=== PATIENT | male | born 1955 | race Caucasian/White ===

== ENCOUNTER 2016-05-15 10:00 | Outpatient (RCR) | payer MEDICARE, OTHER ==
[~2016-05-15 10:00] MED LIST: ACETAMINOPHEN-1 EAC1 ORAL; ACETAMINOPHEN650 M2 ORAL; AMBIEN5 MG ORAL; ATIVAN0.5 MG ORAL; AUGMENTIN 875-1 EAC1 ORAL; BACLOFEN10 MG ORAL; BENAZEPRIL HCL20 MG ORAL; CATAPRES0.1 MG ORAL; CELEXA20 MG ORAL; COGENTIN1 MG GT; COGENTIN1 MG ORAL; CVS EAR CARE F GT; CYCLOBENZAPRINE10 MG ORAL; CYMBALTA30 MG ORAL; DEPAKENE250 MG GT; DEPAKENE250 MG ORAL; DEPAKOTE500 MG PO; DESYREL50 MG GT; DSS250 MG ORAL; DSS250 MG PO; FLEET ENEMA133 ML RC; GABAPENTIN300 MG ORAL; GABAPENTIN600 MG ORAL; IBUPROFEN600 MG ORAL; KLONOPIN0.5 MG GT; KLONOPIN2 MG GT; LANTUS5 UNITS SUBQ; LEVEMIR100 UNIT/1 SUBQ; LIDODERM700 M1 TOPIC; LIPITOR20 MG ORAL; LIPITOR20 MG PO; LISINOPRIL10 MG GT; LISINOPRIL10 MG ORAL; M.V.I. ADULT10 ML GT; MAPAP500 M2 PO; MELATONIN1 M1 SL; METAMUCIL PACK1 EAC1 PO; METAMUCIL1 EAC1 GT; METFORMIN HCL500 M1 ORAL; MILK OF MA2400 MG/10 ORAL; MILK OF MA400 MG/51 ORAL; MILK OF MA400 MG/51 PO; MIRALAX17 G2 ORAL; MIRALAX17 G2 PO; MOM30 ML GT; NEOSPORIN ANT14.2 GM TP; NEURONTIN800 MG GT; NOVOLOG100 UNIT/3 SUBQ; NOVOLOG100 UNIT/4 SQ; PROSCAR5 MG ORAL; PROTONIX40 M2 GT; PROTONIX40 M2 PO; REGLAN10 MG GT; RISPERDAL1 MG/1 ML GT; RISPERDAL1 MG/1 ML PO; RISPERIDONE ODT2 MG PO; SERTRALINE HCL25 MG ORAL; STARLIX120 MG ORAL; SYNTHROID75 MCG GT; SYNTHROID75 MCG ORAL; SYNTHROID75 MCG PO; TAMSULOSIN HCL0.4 MG ORAL; TRAMADOL HCL50 MG ORAL; TRAZODONE HCL100 MG ORAL; TRAZODONE HCL150 MG ORAL; VALPROIC A500 MG/10 GT; VIT. C GT; VITAMIN B-1100 MG GT; VITAMIN B-121000 MCG GT; VITAMIN C500 MG/11 GT; [UNRECOGNIZED DRUG - OTHER]; vit b12 GT
--- NOTE | 2016-05-22 09:19 | IOP Physician Progress Note ---
IOP Physician Progress Note Problem: other (specify) Description of Symptoms: considered to have bipolar disorder. He acknowledges mood swings, but says he doesn't have any symptoms now. He says he presenty feels good, is sleeping a little better. Diagnosis [place] I: Bipolar disorder [place]: II deferred [place]: III diabetes, arthritis, diabetic neuropathy [place]: IV easily stressed [place]: V 31-40 Progress Since Last Eval: The patient seems to be somewhat more stable, but perhaps it is only that the stressors are less. Current Med Management: There are no plans to change. Home Meds: Reported Medications Melatonin (MELATONIN) 1 Mg Tab.subl, 5 MG SL BEDTIME Y for Insomnia, TAB 01/05/16 [elan-lanta] No Conflict Check 12/15/15 Acetaminophen (MAPAP) 500 Mg Capsule, 500 MG PO Q6H, CAP 12/15/15 Magnesium Hydroxide* (MILK OF MAGNESIA*) 400 Mg/5 Ml Oral.susp, 30 ML ORAL DAILY , ML 12/15/15 Gabapentin* (GABAPENTIN*) 600 Mg Tablet, 300 MG ORAL bid, TAB 01/27/15 Duloxetine Hcl* (CYMBALTA*) 30 Mg Capsule.dr, 60 MG ORAL hs, CAP 01/27/15 Risperidone (RISPERIDONE ODT) 2 Mg Tab.rapdis, 1 MG PO bid, TAB 01/04/15 Baclofen* (BACLOFEN*) 10 Mg Tablet, 10 MG ORAL THREE TIMES A DAY, TAB 01/04/15 Metformin Hcl* (METFORMIN HCL*) 500 Mg Tablet, 850 MG ORAL three times per day, TAB 10/20/14 Divalproex Sodium (Depakote) 500 Mg Tabec, 500 MG PO TID, TAB 10/20/14 Nateglinide (Starlix) 120 Mg Tab, 120 MG ORAL THREE TIMES A DAY, TAB 10/20/14 Atorvastatin Calcium* (LIPITOR*) 20 Mg Tablet, 20 MG ORAL BEDTIME, TAB 06/09/13 Benazepril Hcl* (BENAZEPRIL HCL*) 20 Mg Tablet, 20 MG ORAL DAILY, TAB 12/18/12 Levothyroxine Sodium* (SYNTHROID*) 75 Mcg Tablet, 25 MCG PO ACBREAKFAST, #10 TAB Take 1 tablet by mouth every day. 05/28/12 Appearance: well groomed Affect: labile Mood: irritable Thought Process: no abnormalities Thought Content: no abnormalities Suicidal/Homicidal Ideations: not present Risk Assessment: low risk at this time Cognition: no abnormalities Accomplishments before DC: The patient needs to continue to work on mood stabilization. Comments There are no acute physical problems. ALYSSA BLOOM May 22, 2016 09:19
--- NOTE | 2016-05-26 12:51 | IOP Daily Group Progress Note ---
IOP Daily Group Progress Note Treatment Plan/Target Problem: Date: May 26, 2016 Problem: depression Program: reflections Group Reflections - Sunday: group 2 (10:35am-11:20am) Therapy Focus/Approach of Group: skills Goal(s) of Group: assertiveness skills, coping tools for symptoms, impact of current issues on mood Observations: concrete thinking, constricted affect, depressed mood, low energy , monopolizing, participated, self disclosing, responded to prompts Staff Intervention: encouraged patient participation, facilitated discussion, provided psycho-education Response/Progress Noted: TREATMENT RESISTANCE ICEBERG Pt participated in a Cognitive Behavioral Therapy group discussion in response to the questions, When people in group say, I dont know, or I dont care, or monopolize by taking a lot of group time to tell all the details, imagine what might that person be feeling or experiencing? An illustration was drawn of an iceberg above the water with the surface feelings and behaviors, and the possible feelings that might be present under the water such as sadness, anger , low self-esteem, hurt, feeling like no one cares about you, emotionally raw, in emotional pain, or shame about feeling anxious or depressed. Pt stated, I received a lot of anger from my Mother. KARELY NIETO May 26, 2016 12:51
--- NOTE | 2016-05-29 09:27 | IOP Physician Progress Note ---
IOP Physician Progress Note Problem: impaired thoughts, other (specify) Description of Symptoms: Unstable, inconsistent, in his voice timbre, his mood, what he talks about. At times is almost circumstantial, at other times gets loud, silly and the like. He talks about trouble with a friend whom he visited. Diagnosis [place] I: Bipolar disorder [place]: II deferred [place]: III diabetes, arthritis, diabetic neuropathy [place]: IV easily stressed [place]: V 31-40 Progress Since Last Eval: The patient remains very fragile emotionally. Current Med Management: There aare no plans to change at this time, but the patient is having his depakote checked next week--it has not been done for 6 months!! Home Meds: Reported Medications Melatonin (MELATONIN) 1 Mg Tab.subl, 5 MG SL BEDTIME Y for Insomnia, TAB 01/05/16 [elan-lanta] No Conflict Check 12/15/15 Acetaminophen (MAPAP) 500 Mg Capsule, 500 MG PO Q6H, CAP 12/15/15 Magnesium Hydroxide* (MILK OF MAGNESIA*) 400 Mg/5 Ml Oral.susp, 30 ML ORAL DAILY , ML 12/15/15 Gabapentin* (GABAPENTIN*) 600 Mg Tablet, 300 MG ORAL bid, TAB 01/27/15 Duloxetine Hcl* (CYMBALTA*) 30 Mg Capsule.dr, 60 MG ORAL hs, CAP 01/27/15 Risperidone (RISPERIDONE ODT) 2 Mg Tab.rapdis, 1 MG PO bid, TAB 01/04/15 Baclofen* (BACLOFEN*) 10 Mg Tablet, 10 MG ORAL THREE TIMES A DAY, TAB 01/04/15 Metformin Hcl* (METFORMIN HCL*) 500 Mg Tablet, 850 MG ORAL three times per day, TAB 10/20/14 Divalproex Sodium (Depakote) 500 Mg Tabec, 500 MG PO TID, TAB 10/20/14 Nateglinide (Starlix) 120 Mg Tab, 120 MG ORAL THREE TIMES A DAY, TAB 10/20/14 Atorvastatin Calcium* (LIPITOR*) 20 Mg Tablet, 20 MG ORAL BEDTIME, TAB 06/09/13 Benazepril Hcl* (BENAZEPRIL HCL*) 20 Mg Tablet, 20 MG ORAL DAILY, TAB 12/18/12 Levothyroxine Sodium* (SYNTHROID*) 75 Mcg Tablet, 25 MCG PO ACBREAKFAST, #10 TAB Take 1 tablet by mouth every day. 05/28/12 Appearance: well groomed Affect: labile Mood: anxious Thought Process: no abnormalities, illogical Thought Content: no abnormalities Suicidal/Homicidal Ideations: not present Risk Assessment: low risk at this time Cognition: no abnormalities Accomplishments before DC: The patient still lacks mood stabiilty, though he seems to calm down with some "shaping" by others. Comments There are no physical problems. ALYSSA BLOOM May 29, 2016 09:27
== END 2016-05-30 | disposition home or self-care (01) ==
LOC: PTY 10:00
DX: M25.60 Stiffness of unspecified joint, not elsewhere classified (principal); R53.1 Weakness; M54.30 Sciatica, unspecified side; M25.551 Pain in right hip
CPT/HCPCS: 97110; 97162; G8978; G8979

== ENCOUNTER 2016-06-05 13:42 | Outpatient (RCR) | payer MEDICARE, OTHER ==
--- NOTE | 2016-06-12 09:37 | IOP Physician Progress Note ---
IOP Physician Progress Note Description of Symptoms: Continues to report sleep difficulties, but it is almost like he uses that to have something to talk about with me. Diagnosis [place] I: Schizoaffective disorder, bipolar type. [place]: II deferred [place]: III diabetes, in wheelchair due to neuropathy, arthritis [place]: IV senstivie to stressors in his environment [place]: V 31-40 Progress Since Last Eval: The patient may have somewhat better affective control. Current Med Management: The patient reports drooling, and wants cogentin Home Meds: Reported Medications Melatonin (MELATONIN) 1 Mg Tab.subl, 5 MG SL BEDTIME Y for Insomnia, TAB 01/05/16 [elan-lanta] No Conflict Check 12/15/15 Acetaminophen (MAPAP) 500 Mg Capsule, 500 MG PO Q6H, CAP 12/15/15 Magnesium Hydroxide* (MILK OF MAGNESIA*) 400 Mg/5 Ml Oral.susp, 30 ML ORAL DAILY , ML 12/15/15 Gabapentin* (GABAPENTIN*) 600 Mg Tablet, 300 MG ORAL bid, TAB 01/27/15 Duloxetine Hcl* (CYMBALTA*) 30 Mg Capsule.dr, 60 MG ORAL hs, CAP 01/27/15 Risperidone (RISPERIDONE ODT) 2 Mg Tab.rapdis, 1 MG PO bid, TAB 01/04/15 Baclofen* (BACLOFEN*) 10 Mg Tablet, 10 MG ORAL THREE TIMES A DAY, TAB 01/04/15 Metformin Hcl* (METFORMIN HCL*) 500 Mg Tablet, 850 MG ORAL three times per day, TAB 10/20/14 Divalproex Sodium (Depakote) 500 Mg Tabec, 500 MG PO TID, TAB 10/20/14 Nateglinide (Starlix) 120 Mg Tab, 120 MG ORAL THREE TIMES A DAY, TAB 10/20/14 Atorvastatin Calcium* (LIPITOR*) 20 Mg Tablet, 20 MG ORAL BEDTIME, TAB 06/09/13 Benazepril Hcl* (BENAZEPRIL HCL*) 20 Mg Tablet, 20 MG ORAL DAILY, TAB 12/18/12 Levothyroxine Sodium* (SYNTHROID*) 75 Mcg Tablet, 25 MCG PO ACBREAKFAST, #10 TAB Take 1 tablet by mouth every day. 05/28/12 Appearance: well groomed Affect: labile Mood: anxious Thought Process: no abnormalities Thought Content: no abnormalities Suicidal/Homicidal Ideations: not present Risk Assessment: low risk at this time Cognition: no abnormalities Accomplishments before DC: The paatient needs to work on affective control. Comments Only drooling is the problem the patient identifies. ALYSSA BLOOM Jun 12, 2016 09:37
--- NOTE | 2016-06-19 09:43 | IOP Physician Progress Note ---
IOP Physician Progress Note Problem: depression Description of Symptoms: The patient complains of depression, and says he is angry and having problems with temper. Staff here thinks the patient is primariily angry that he is being encouraged to get outof his wheelchair and do some things. Diagnosis [place] I: Schizoaffective disorder, bipolar type. [place]: II deferred [place]: III diabetes, in wheelchair due to neuropathy, arthritis [place]: IV senstivie to stressors in his environment [place]: V 31- Progress Since Last Eval: The patient is more discouraged, says he is having problems with other people where he lives. Current Med Management: We await the depakote level--the patient tells me the appointment is July 10 , not the . Home Meds: Reported Medications Melatonin (MELATONIN) 1 Mg Tab.subl, 5 MG SL BEDTIME Y for Insomnia, TAB 01/05/16 [elan-lanta] No Conflict Check 12/15/15 Acetaminophen (MAPAP) 500 Mg Capsule, 500 MG PO Q6H, CAP 12/15/15 Magnesium Hydroxide* (MILK OF MAGNESIA*) 400 Mg/5 Ml Oral.susp, 30 ML ORAL DAILY , ML 12/15/15 Gabapentin* (GABAPENTIN*) 600 Mg Tablet, 300 MG ORAL bid, TAB 01/27/15 Duloxetine Hcl* (CYMBALTA*) 30 Mg Capsule.dr, 60 MG ORAL hs, CAP 01/27/15 Risperidone (RISPERIDONE ODT) 2 Mg Tab.rapdis, 1 MG PO bid, TAB 01/04/15 Baclofen* (BACLOFEN*) 10 Mg Tablet, 10 MG ORAL THREE TIMES A DAY, TAB 01/04/15 Metformin Hcl* (METFORMIN HCL*) 500 Mg Tablet, 850 MG ORAL three times per day, TAB 10/20/14 Divalproex Sodium (Depakote) 500 Mg Tabec, 500 MG PO TID, TAB 10/20/14 Nateglinide (Starlix) 120 Mg Tab, 120 MG ORAL THREE TIMES A DAY, TAB 10/20/14 Atorvastatin Calcium* (LIPITOR*) 20 Mg Tablet, 20 MG ORAL BEDTIME, TAB 06/09/13 Benazepril Hcl* (BENAZEPRIL HCL*) 20 Mg Tablet, 20 MG ORAL DAILY, TAB 12/18/12 Levothyroxine Sodium* (SYNTHROID*) 75 Mcg Tablet, 25 MCG PO ACBREAKFAST, #10 TAB Take 1 tablet by mouth every day. 05/28/12 Appearance: well groomed Affect: constricted Mood: angry Thought Process: no abnormalities Thought Content: no abnormalities Suicidal/Homicidal Ideations: not present Risk Assessment: low risk at this time Cognition: no abnormalities Accomplishments before DC: The patient needs to get better understanding of his affective ability. Comments There are no acute physical problems. ALYSSA BLOOM Jun 19, 2016 09:43
--- NOTE | 2016-06-26 09:22 | IOP Physician Progress Note ---
IOP Physician Progress Note Problem: other (specify) Description of Symptoms: The patient sees the world as crushing down on him. He thinks he is sicker than anyone else. But he has little observing ego about ity. THus for example , he erupted vs his continuous mining operator yesterday, because she did not shave and shower him. But he also acknowledges that he can shave himself. He is vague about what it is that would help. Diagnosis [place] I: Schizoaffective disorder, bipolar type. [place]: II deferred [place]: III diabetes, in wheelchair due to neuropathy, arthritis [place]: IV senstivie to stressors in his environment [place]: V - Progress Since Last Eval: The patient continues very labile. Current Med Management: This needs to be reviewed. Home Meds: Reported Medications Melatonin (MELATONIN) 1 Mg Tab.subl, 5 MG SL BEDTIME Y for Insomnia, TAB 01/05/16 [elan-lanta] No Conflict Check 12/15/15 Acetaminophen (MAPAP) 500 Mg Capsule, 500 MG PO Q6H, CAP 12/15/15 Magnesium Hydroxide* (MILK OF MAGNESIA*) 400 Mg/5 Ml Oral.susp, 30 ML ORAL DAILY , ML 12/15/15 Gabapentin* (GABAPENTIN*) 600 Mg Tablet, 300 MG ORAL bid, TAB 01/27/15 Duloxetine Hcl* (CYMBALTA*) 30 Mg Capsule.dr, 60 MG ORAL hs, CAP 01/27/15 Risperidone (RISPERIDONE ODT) 2 Mg Tab.rapdis, 1 MG PO bid, TAB 01/04/15 Baclofen* (BACLOFEN*) 10 Mg Tablet, 10 MG ORAL THREE TIMES A DAY, TAB 01/04/15 Metformin Hcl* (METFORMIN HCL*) 500 Mg Tablet, 850 MG ORAL three times per day, TAB 10/20/14 Divalproex Sodium (Depakote) 500 Mg Tabec, 500 MG PO TID, TAB 10/20/14 Nateglinide (Starlix) 120 Mg Tab, 120 MG ORAL THREE TIMES A DAY, TAB 10/20/14 Atorvastatin Calcium* (LIPITOR*) 20 Mg Tablet, 20 MG ORAL BEDTIME, TAB 06/09/13 Benazepril Hcl* (BENAZEPRIL HCL*) 20 Mg Tablet, 20 MG ORAL DAILY, TAB 12/18/12 Levothyroxine Sodium* (SYNTHROID*) 75 Mcg Tablet, 25 MCG PO ACBREAKFAST, #10 TAB Take 1 tablet by mouth every day. 05/28/12 Appearance: well groomed Affect: labile Mood: anxious Thought Process: illogical Thought Content: no abnormalities Suicidal/Homicidal Ideations: not present Risk Assessment: low risk at this time Cognition: no abnormalities Accomplishments before DC: The patient needs to work for affective stability. Comments There are no acute physical problems. ALYSSA BLOOM Jun 26, 2016 09:22
== END 2016-06-30 | disposition home or self-care (01) ==
LOC: PTY 13:42
DX: R53.1 Weakness (principal); M25.60 Stiffness of unspecified joint, not elsewhere classified

== ENCOUNTER 2016-07-07 13:16 | Outpatient (RCR) | payer MEDICARE, OTHER ==
--- NOTE | 2016-07-12 09:31 | IOP Physician Progress Note ---
IOP Physician Progress Note Problem: other (specify) Description of Symptoms: Patient is fundamentally bipolar with affective lability, inappropriate behavior , laughter and the like. Diagnosis [place] I: Bipolar disorder with psychotic features [place]: II deferred [place]: III diabetes with peripheral neuropathy, sciatica, arthritis [place]: IV sensitive to stressors [place]: V 31-40 Progress Since Last Eval: The patient is intermittently, but not consistently, in control. Current Med Management: This is under review. The patient complains of drooling and says that he has responded to cogentin 1 mg po daily before. I will prescribe this. Home Meds: Reported Medications Melatonin (MELATONIN) 1 Mg Tab.subl, 5 MG SL BEDTIME Y for Insomnia, TAB 01/05/16 [elan-lanta] No Conflict Check 12/15/15 Acetaminophen (MAPAP) 500 Mg Capsule, 500 MG PO Q6H, CAP 12/15/15 Magnesium Hydroxide* (MILK OF MAGNESIA*) 400 Mg/5 Ml Oral.susp, 30 ML ORAL DAILY , ML 12/15/15 Gabapentin* (GABAPENTIN*) 600 Mg Tablet, 300 MG ORAL bid, TAB 01/27/15 Duloxetine Hcl* (CYMBALTA*) 30 Mg Capsule.dr, 60 MG ORAL hs, CAP 01/27/15 Risperidone (RISPERIDONE ODT) 2 Mg Tab.rapdis, 1 MG PO bid, TAB 01/04/15 Baclofen* (BACLOFEN*) 10 Mg Tablet, 10 MG ORAL THREE TIMES A DAY, TAB 01/04/15 Metformin Hcl* (METFORMIN HCL*) 500 Mg Tablet, 850 MG ORAL three times per day, TAB 10/20/14 Divalproex Sodium (Depakote) 500 Mg Tabec, 500 MG PO TID, TAB 10/20/14 Nateglinide (Starlix) 120 Mg Tab, 120 MG ORAL THREE TIMES A DAY, TAB 10/20/14 Atorvastatin Calcium* (LIPITOR*) 20 Mg Tablet, 20 MG ORAL BEDTIME, TAB 06/09/13 Benazepril Hcl* (BENAZEPRIL HCL*) 20 Mg Tablet, 20 MG ORAL DAILY, TAB 12/18/12 Levothyroxine Sodium* (SYNTHROID*) 75 Mcg Tablet, 25 MCG PO ACBREAKFAST, #10 TAB Take 1 tablet by mouth every day. 05/28/12 Appearance: well groomed Affect: labile Mood: anxious Thought Process: illogical Thought Content: no abnormalities Suicidal/Homicidal Ideations: not present Risk Assessment: low risk at this time Cognition: no abnormalities Accomplishments before DC: The patient has to work on affective stabilization and appropriate interpersonal interaction. Comments The patient has problems with drooling. ALYSSA BLOOM Jul 12, 2016 09:31
[2016-07-12] MEDS ORDERED: benzotropine PO (10:35)
--- NOTE | 2016-07-17 09:42 | IOP Physician Progress Note ---
IOP Physician Progress Note Problem: other (specify) Description of Symptoms: The patient continues to be unstable, with eruptions of anger and shouting. He is aware people avoid him when he acts like this. Diagnosis [place] I: Bipolar disorder with psychotic features [place]: II deferred [place]: III diabetes with peripheral neuropathy, sciatica, arthritis [place]: IV sensitive to stressors [place]: V 31-40 Progress Since Last Eval: The patient continues to have problems with controls. Current Med Management: This is under review. Home Meds: Reported Medications [benzotropine] No Conflict Check, 1 MG PO hs 07/12/16 Melatonin (MELATONIN) 1 Mg Tab.subl, 5 MG SL BEDTIME Y for Insomnia, TAB 01/05/16 [elan-lanta] No Conflict Check 12/15/15 Acetaminophen (MAPAP) 500 Mg Capsule, 500 MG PO Q6H, CAP 12/15/15 Magnesium Hydroxide* (MILK OF MAGNESIA*) 400 Mg/5 Ml Oral.susp, 30 ML ORAL DAILY , ML 12/15/15 Gabapentin* (GABAPENTIN*) 600 Mg Tablet, 300 MG ORAL bid, TAB 01/27/15 Duloxetine Hcl* (CYMBALTA*) 30 Mg Capsule.dr, 60 MG ORAL hs, CAP 01/27/15 Risperidone (RISPERIDONE ODT) 2 Mg Tab.rapdis, 1 MG PO bid, TAB 01/04/15 Baclofen* (BACLOFEN*) 10 Mg Tablet, 10 MG ORAL THREE TIMES A DAY, TAB 01/04/15 Metformin Hcl* (METFORMIN HCL*) 500 Mg Tablet, 850 MG ORAL three times per day, TAB 10/20/14 Divalproex Sodium (Depakote) 500 Mg Tabec, 500 MG PO TID, TAB 10/20/14 Nateglinide (Starlix) 120 Mg Tab, 120 MG ORAL THREE TIMES A DAY, TAB 10/20/14 Atorvastatin Calcium* (LIPITOR*) 20 Mg Tablet, 20 MG ORAL BEDTIME, TAB 06/09/13 Benazepril Hcl* (BENAZEPRIL HCL*) 20 Mg Tablet, 20 MG ORAL DAILY, TAB 12/18/12 Levothyroxine Sodium* (SYNTHROID*) 75 Mcg Tablet, 25 MCG PO ACBREAKFAST, #10 TAB Take 1 tablet by mouth every day. 05/28/12 Appearance: well groomed Affect: constricted Mood: manic Thought Process: disorganized Thought Content: no abnormalities Suicidal/Homicidal Ideations: not present Risk Assessment: low risk at this time Cognition: no abnormalities Accomplishments before DC: The patient needs to confront his failure to exercise controls and develop constraints on his inappropriate behavior. Comments There are no new physical problems. ALYSSA BLOOM Jul 17, 2016 09:42
--- NOTE | 2016-07-24 09:41 | IOP Physician Progress Note ---
IOP Physician Progress Note Problem: impaired thoughts Description of Symptoms: The patient is to have depakote level m=tomorrow. The cogentin has left him with a bit of a dry mouth. Diagnosis [place] I: Bipolar disorder with psychotic features [place]: II deferred [place]: III diabetes with peripheral neuropathy, sciatica, arthritis [place]: IV sensitive to stressors [place]: V 31-40 Progress Since Last Eval: Fair, but still without sufficient affective control. Current Med Management: We await the depakote level. Home Meds: Reported Medications [benzotropine] No Conflict Check, 1 MG PO hs 07/12/16 Melatonin (MELATONIN) 1 Mg Tab.subl, 5 MG SL BEDTIME Y for Insomnia, TAB 01/05/16 [elan-lanta] No Conflict Check 12/15/15 Acetaminophen (MAPAP) 500 Mg Capsule, 500 MG PO Q6H, CAP 12/15/15 Magnesium Hydroxide* (MILK OF MAGNESIA*) 400 Mg/5 Ml Oral.susp, 30 ML ORAL DAILY , ML 12/15/15 Gabapentin* (GABAPENTIN*) 600 Mg Tablet, 300 MG ORAL bid, TAB 01/27/15 Duloxetine Hcl* (CYMBALTA*) 30 Mg Capsule.dr, 60 MG ORAL hs, CAP 01/27/15 Risperidone (RISPERIDONE ODT) 2 Mg Tab.rapdis, 1 MG PO bid, TAB 01/04/15 Baclofen* (BACLOFEN*) 10 Mg Tablet, 10 MG ORAL THREE TIMES A DAY, TAB 01/04/15 Metformin Hcl* (METFORMIN HCL*) 500 Mg Tablet, 850 MG ORAL three times per day, TAB 10/20/14 Divalproex Sodium (Depakote) 500 Mg Tabec, 500 MG PO TID, TAB 10/20/14 Nateglinide (Starlix) 120 Mg Tab, 120 MG ORAL THREE TIMES A DAY, TAB 10/20/14 Atorvastatin Calcium* (LIPITOR*) 20 Mg Tablet, 20 MG ORAL BEDTIME, TAB 06/09/13 Benazepril Hcl* (BENAZEPRIL HCL*) 20 Mg Tablet, 20 MG ORAL DAILY, TAB 12/18/12 Levothyroxine Sodium* (SYNTHROID*) 75 Mcg Tablet, 25 MCG PO ACBREAKFAST, #10 TAB Take 1 tablet by mouth every day. 05/28/12 Appearance: well groomed Affect: labile Mood: anxious Thought Process: no abnormalities Thought Content: no abnormalities Suicidal/Homicidal Ideations: not present Risk Assessment: low risk at this time Cognition: no abnormalities Accomplishments before DC: As mentioned, needs to work on affective control. Comments There are no physical problems. ALYSSA BLOOM Jul 24, 2016 09:41
--- NOTE | 2016-07-24 13:35 | IOP Daily Group Progress Note ---
IOP Daily Group Progress Note Treatment Plan/Target Problem: Date: Jul 24, 2016 Problem: depression Program: reflections Group Reflections - Sunday: group 2 (10:35am-11:20am) Therapy Focus/Approach of Group: skills Goal(s) of Group: communication skills, interpersonal relationships Observations: concrete thinking, constricted affect, depressed mood, hyperverbal, low energy, participated Staff Intervention: encouraged patient participation, facilitated discussion, provided psycho-education Response/Progress Noted: FEELING WORD AWARENESS EXERCISE Pt participated in a Cognitive Behavioral Therapy group discussion/game guessing a particular feeling word, based on a description of it using the word very, such as very afraid, would be the word, fearful. This was from an exercise on [facility]. Pts were engaged and enjoyed trying to guess the feeling word being described, and joined in as a group. KARELY NIETO LMFT Jul 24, 2016 13:35
== END 2016-07-30 | disposition home or self-care (01) ==
LOC: PTY 13:16
DX: R53.1 Weakness (principal); M25.60 Stiffness of unspecified joint, not elsewhere classified

== ENCOUNTER 2016-08-04 13:00 | Outpatient (RCR) | payer MEDICARE, OTHER ==
[~2016-08-04 13:00] MED LIST changes: +benzotropine PO
--- NOTE | 2016-08-14 09:46 | IOP Physician Progress Note ---
IOP Physician Progress Note Problem: impaired thoughts Description of Symptoms: The patient is fundamentally schizophrenic, loud, disruptive, intrusive, insensitive to feedback. But he settles down as he speak siwth me, though he chatters a lot. Diagnosis [place] I: Schizophrenia, paranoid [place]: II deferred [place]: III diabetes, using walker, for neuropathy, arthritis, sciatica [place]: IV sensitive to stressors [place]: V 31-40 Progress Since Last Eval: The patient remains much the same, unable to consistently move forward. Current Med Management: This continues under review. We await depakote level. Home Meds: Reported Medications [benzotropine] No Conflict Check, 1 MG PO hs 07/12/16 Melatonin (MELATONIN) 1 Mg Tab.subl, 5 MG SL BEDTIME Y for Insomnia, TAB 01/05/16 [elan-lanta] No Conflict Check 12/15/15 Acetaminophen (MAPAP) 500 Mg Capsule, 500 MG PO Q6H, CAP 12/15/15 Magnesium Hydroxide* (MILK OF MAGNESIA*) 400 Mg/5 Ml Oral.susp, 30 ML ORAL DAILY , ML 12/15/15 Gabapentin* (GABAPENTIN*) 600 Mg Tablet, 300 MG ORAL bid, TAB 01/27/15 Duloxetine Hcl* (CYMBALTA*) 30 Mg Capsule.dr, 60 MG ORAL hs, CAP 01/27/15 Risperidone (RISPERIDONE ODT) 2 Mg Tab.rapdis, 1 MG PO bid, TAB 01/04/15 Baclofen* (BACLOFEN*) 10 Mg Tablet, 10 MG ORAL THREE TIMES A DAY, TAB 01/04/15 Metformin Hcl* (METFORMIN HCL*) 500 Mg Tablet, 850 MG ORAL three times per day, TAB 10/20/14 Divalproex Sodium (Depakote) 500 Mg Tabec, 500 MG PO TID, TAB 10/20/14 Nateglinide (Starlix) 120 Mg Tab, 120 MG ORAL THREE TIMES A DAY, TAB 10/20/14 Atorvastatin Calcium* (LIPITOR*) 20 Mg Tablet, 20 MG ORAL BEDTIME, TAB 06/09/13 Benazepril Hcl* (BENAZEPRIL HCL*) 20 Mg Tablet, 20 MG ORAL DAILY, TAB 12/18/12 Levothyroxine Sodium* (SYNTHROID*) 75 Mcg Tablet, 25 MCG PO ACBREAKFAST, #10 TAB Take 1 tablet by mouth every day. 05/28/12 Appearance: well groomed Affect: incongruous Mood: anxious Thought Process: illogical Thought Content: other - heard voices, but only years ago he says. Suicidal/Homicidal Ideations: not present Risk Assessment: low risk at this time Cognition: no abnormalities Accomplishments before DC: The patient needs to work on affect control coping. Comments There are no physical problems at this time. ALYSSA BLOOM August 14, 2016 09:46
--- NOTE | 2016-08-14 16:25 | IOP Daily Group Progress Note ---
IOP Daily Group Progress Note Treatment Plan/Target Problem: Date: August 14, 2016 Problem: other (specify) - anxiety Group Reflections - Sunday: group 3 (11:30am-12:15pm) Therapy Focus/Approach of Group: symptoms Goal(s) of Group: coping tools for symptoms, counteracting negative thinking, identifying strengths, stress reduction, verbalize current thoughts and mood, weekend review Observations: anxious, engaged, hyperverbal, participating actively, positive mood, self disclosing Staff Intervention: assessed for safety/suicidality, assessed pt's current mood , facilitated discussion Staff Intervention: Therapist asked patients to consider current mood and feelings, and to discuss their weekend. Therapist offered patients a safe, comfortable space to express themselves and assessed for HI, SI, and safety. Response/Progress Noted: Patient introduced himself to group and therapist. He disclosed he was bipolar and described instances when he gets angry, most recently with his [facility]mate at [facility]. He said he never gets violent. Patient described himself as "a born loser and a born sinner, I feel like both." Patient shared he has had a "boyfriend for 12 years." Juliano Magdaleno CREDIT MANAGER August 14, 2016 16:25
--- NOTE | 2016-08-21 09:41 | IOP Physician Progress Note ---
IOP Physician Progress Note Problem: impaired thoughts Description of Symptoms: The patient, who moves slowly on his walker, is still irritable. He says he needs to see me but lacks any real focus in the session. He says that he needs cogentin, which he maintains stops popping noises in his head. He says he is depressed, but feels he has no idea why, and is helpless. Diagnosis [place] I: Schizophrenia, paranoid [place]: II deferred [place]: III diabetes, using walker, for neuropathy, arthritis, sciatica [place]: IV sensitive to stressors [place]: V 31-40 Progress Since Last Eval: The patient continues negativistic and emotionally labile with stress. Current Med Management: There are no plans to change. Given refill for cogentin. Home Meds: Reported Medications [benzotropine] No Conflict Check, 1 MG PO hs 07/12/16 Melatonin (MELATONIN) 1 Mg Tab.subl, 5 MG SL BEDTIME Y for Insomnia, TAB 01/05/16 [elan-lanta] No Conflict Check 12/15/15 Acetaminophen (MAPAP) 500 Mg Capsule, 500 MG PO Q6H, CAP 12/15/15 Magnesium Hydroxide* (MILK OF MAGNESIA*) 400 Mg/5 Ml Oral.susp, 30 ML ORAL DAILY , ML 12/15/15 Gabapentin* (GABAPENTIN*) 600 Mg Tablet, 300 MG ORAL bid, TAB 01/27/15 Duloxetine Hcl* (CYMBALTA*) 30 Mg Capsule.dr, 60 MG ORAL hs, CAP 01/27/15 Risperidone (RISPERIDONE ODT) 2 Mg Tab.rapdis, 1 MG PO bid, TAB 01/04/15 Baclofen* (BACLOFEN*) 10 Mg Tablet, 10 MG ORAL THREE TIMES A DAY, TAB 01/04/15 Metformin Hcl* (METFORMIN HCL*) 500 Mg Tablet, 850 MG ORAL three times per day, TAB 10/20/14 Divalproex Sodium (Depakote) 500 Mg Tabec, 500 MG PO TID, TAB 10/20/14 Nateglinide (Starlix) 120 Mg Tab, 120 MG ORAL THREE TIMES A DAY, TAB 10/20/14 Atorvastatin Calcium* (LIPITOR*) 20 Mg Tablet, 20 MG ORAL BEDTIME, TAB 06/09/13 Benazepril Hcl* (BENAZEPRIL HCL*) 20 Mg Tablet, 20 MG ORAL DAILY, TAB 12/18/12 Levothyroxine Sodium* (SYNTHROID*) 75 Mcg Tablet, 25 MCG PO ACBREAKFAST, #10 TAB Take 1 tablet by mouth every day. 05/28/12 Appearance: well groomed Affect: blunted Mood: depressed Thought Process: no abnormalities Thought Content: no abnormalities, other - hears noises in his head Suicidal/Homicidal Ideations: not present Risk Assessment: low risk at this time Cognition: no abnormalities Accomplishments before DC: The patient has been ignoring his ADLs; he needs to focus on this as well as working on affective modulation. Comments There are no new physical problems, but there are th echronic ones. ALYSSA BLOOM August 21, 2016 09:41
--- NOTE | 2016-08-21 19:03 | IOP Daily Group Progress Note ---
IOP Daily Group Progress Note Treatment Plan/Target Problem: Date: August 21, 2016 Problem: impaired thoughts Program: reflections Group Reflections - Sunday: group 3 (11:30am-12:15pm) Therapy Focus/Approach of Group: symptoms Goal(s) of Group: assertiveness skills, communication skills, coping tools for symptoms, coping with change, counteracting negative thinking, decreasing isolation, goal setting, identify activities to improve mood, identify mood, identifying strengths, identify triggers to symptoms, impact of current issues on mood, improving self esteem, increasing independence, positive thoughts to improve mood, socialization skills, stress reduction, support systems, symptom management, verbalize current thoughts and mood Observations: anxious, attentive, blunted, concrete thinking, engaged, focused , nervous, open, participated, pressured speech, self disclosing, responded to prompts Staff Intervention: assessed for safety/suicidality, assessed pt's current mood , assisted identifying coping tools, assisted with identifying symptoms, assisted with problem solving, encouraged patient participation, facilitated discussion, normalized feelings, prompted pt, provided psycho-education, provided reassurance, provided support, reflective listening, reframed, summarized, validated feelings Staff Intervention: Pt participated in Symptoms Mgmt Group today. He was mod-open and mod-active in the group discussion. Pt shared "I have problems with depression. I need to get out and walk more." Pt received the [facility] supportive feedback from other group members. DEEPALI STONE August 21, 2016 19:03
--- NOTE | 2016-08-30 16:58 | IOP Daily Group Progress Note ---
IOP Daily Group Progress Note Treatment Plan/Target Problem: Date: August 30, 2016 Problem: depression Program: reflections Group - Sunday: group 2 (10:35am-11:20am) Therapy Focus/Approach of Group: skills Goal(s) of Group: anxiety reduction, communication skills, coping with change, identifying strengths, verbalize current thoughts and mood Observations: anxious, depressed mood, low energy, participated, responded to prompts Staff Intervention: assessed for safety/suicidality, assessed pt's current mood , facilitated discussion, prompted reminiscence, provided aviation support equipment repairer Intervention: Therapist facilitated a discussion among patients, encouraging them to share situations where expectations were met and weren't met and what motivated their reactions, as well as when they managed the expectations of others. Response/Progress Noted: Patient discussed his disappointment in his current roommate and hopes for a new one he can better get along with, "who doesn't sleep all the time." Juliano Magdaleno PUBLIC ADDRESS SYSTEMS MECHANIC August 30, 2016 16:58
== END 2016-08-30 | disposition home or self-care (01) ==
LOC: PTY 13:00
DX: R53.1 Weakness (principal); M25.60 Stiffness of unspecified joint, not elsewhere classified

== ENCOUNTER 2016-09-18 13:30 | Outpatient (RCR) | payer MEDICARE, OTHER ==
[2016-09-18] MEDS ORDERED: ACETAMINOPHEN-1 EAC1 ORAL (17:12)
== END 2016-09-29 | disposition home or self-care (01) ==
LOC: PTY 13:30
DX: R53.1 Weakness (principal); M25.60 Stiffness of unspecified joint, not elsewhere classified
CPT/HCPCS: 97110; G8979; G8980

== ENCOUNTER 2016-09-18 15:36 | Emergency (ER) | payer MEDICARE, OTHER ==
[~2016-09-18] VITALS: Ht 182.9 cm; Wt 90.7 kg
[2016-09-18 15:50] VITALS: BP 118/70
[2016-09-18] MEDS ORDERED: Tylenol #3 tab (300mg/30mg) ORAL ONE (16:15)
[2016-09-18 17:12] VITALS: BP 118/70
[2016-09-18] MEDS ORDERED: ACETAMINOPHEN-1 EAC1 ORAL (17:12)
--- NOTE | 2016-09-18 21:33 | Emergency Room Report ---
History of Present Illness General Chief Complaint: Multiple Trauma/Fall Source: Patient Present Illness HPI The patient is a 61-year-old male with a history of diabetic neuropathy presenting for back pain after falling. The patient states that he was using a towel rack to support his weight when it broke and he fell onto his buttock. He states pain is a 7/10 sharp sensation to the mid lower back and does not radiate. Pain worse with touch. He denies previous back injury. He states that he usually ambulates at home with a walker and wheelchair. He denies any other injury and denies hitting his head. He denies any other symptoms Allergies: Coded Allergies: No Known Allergies (Unverified , 09/18/16) Patient History Past Medical History: see triage record Pertinent Family History: none Reviewed Nursing Documentation: PMH: Agreed, PSxH: Agreed Nursing Documentation-PMH Past Medical History: No History, Except For Hx Cardiac Problems: Yes - CAD Hx Hypertension: Yes Hx Pacemaker: No Hx Asthma: No Hx Diabetes: Yes Hx Cancer: No Hx Gastrointestinal Problems: Yes Hx Dialysis: No - BPH, Renal insufficiency History Of Psychiatric Problem: Yes - bipolar, depression Hx Neurological Problems: No Hx Seizures: Yes Hx Headaches: Yes Review of Systems All Other Systems: negative except mentioned in HPI Physical Exam Vital Signs Date Time Temp Pulse Resp B/P Pulse Ox O2 Delivery O2 Flow Rate FiO2 09/18/16 15:40 98.1 89 18 118/70 98 Room Air Sp02 EP Interpretation: reviewed, normal General Appearance: no apparent distress, alert, GCS 15, non-toxic Head: normocephalic, atraumatic Eyes: bilateral eye PERRL, bilateral eye normal inspection ENT: hearing grossly normal, normal pharynx, no angioedema, normal voice Neck: full range of motion, supple/symm/no masses Musculoskeletal: decreased range of motion, tender - TTP over the mid Lumbar spine and paraspinous muscles Neurologic: alert, oriented x3, responsive, sensory intact, abnormal gait - in wheelchair Psychiatric: judgement/insight normal, memory normal, mood/affect normal, no suicidal/homicidal ideation Skin: normal color, no rash, warm/dry, well hydrated Medical Decision Making PA Attestation Dr. Horn is my supervising physician. Patient management was discussed with my supervising physician Diagnostic Impression: Primary Impression: Back pain Qualified Codes: M54.5 - Low back pain ER Course The patient is a 61-year-old male with a history of diabetic neuropathy presenting for back pain after falling Ddx considered include but not limited to lumbar strain, degenerative disease, herniated disc, chronic pain, narcotic dependency. PE: vitals WNL. NAD The patient is in a wheelchair. There is tenderness to palpation over midline lumbar spine and paraspinous muscles. No step-offs The patient is given pain medication and imaging was ordered. When radiology arrived to take the patient, he declined stating that he does not want to pay for any imaging. The risks of declining imaging were discussed with the patient and he still refuses. The patient will sign out AGAINST MEDICAL ADVICE and is given a prescription for pain medication. He needs to followup with his primary doctor as soon as possible and he is given he ER precautions to return. Last Vital Signs Date Time Temp Pulse Resp B/P Pulse Ox O2 Delivery O2 Flow Rate FiO2 09/18/16 15:50 98.1 18 118/70 98 Room Air 09/18/16 15:40 89 Status: improved Disposition: AGAINST MEDICAL ADVICE Condition: Stable Scripts Acetaminophen With Codeine (T#3) (TYLENOL #3 TAB*) Y Tab 1 TAB ORAL Q6HR Y for For Pain, #10 TAB Prov: ERIC BONE 09/18/16 Patient Instructions: Back Pain, Adult Additional Instructions: You have chosen to leave AMA and understand the risks associated with this. All questions and concerns have been answered. Treatment and medication compliance have been addressed. I advised the patient that they need to follow up with primary doctor as soon as possible. Return to ED if symptoms worsen, new symptoms arise, or if needed for any reason. Patient verbalized understanding of discharge instructions. ERIC BONE Sep 18, 2016 21:33
== END 2016-09-18 17:12 | disposition left against medical advice (07) ==
LOC: EMR 16:05
DX: M54.5 Low back pain (principal); W19.XXXA Unspecified fall, initial encounter; E11.40 Type 2 diabetes mellitus with diabetic neuropathy, unspecified; I25.10 Atherosclerotic heart disease of native coronary artery without angina pectoris; I10 Essential (primary) hypertension
CPT/HCPCS: 99283

== ENCOUNTER 2017-03-26 10:33 | Inpatient (IN) | payer MEDICARE, OTHER ==
[~2017-03-26] VITALS: Ht 182.9 cm; Wt 86.6 kg
[~2017-03-26 10:33] MED LIST changes: +BENZTROPINE MESY1 MG PO; +GERI-LANTA LIQ355 ML PO; +LOPERAMIDE2 MG PO; +MELOXICAM15 MG PO; +PANTOPRAZOLE SO40 MG ORAL; +RISPERDAL2 MG ORAL; +TYLENOL #21 EA ORAL; +VOLTAREN100 G1 TP; +ZYPREXA5 MG ORAL
[2017-03-26] MEDS ORDERED: GABAPENTIN300 MG ORAL (10:48)
--- NOTE | 2017-03-26 10:50 | Emergency Room Report ---
History of Present Illness General Chief Complaint: General Complaint Source: Patient Present Illness HPI Patient is 61-year-old male presented after increased generalized weakness and confusion. Patient prior history of CVA as well as diabetes. He is wheelchair- bound due to neuropathy. Patient reportedly had some increased slurring of speech. The patient presented on medications for diabetes as well as Risperdal. Allergies: Coded Allergies: No Known Allergies (Unverified , 09/18/16) Patient History Reviewed Nursing Documentation: PMH: Agreed, PSxH: Agreed Nursing Documentation-PMH Hx Cardiac Problems: Yes - CAD Hx Hypertension: Yes Hx Pacemaker: No Hx Asthma: No Hx Diabetes: Yes Hx Cancer: No Hx Gastrointestinal Problems: Yes Hx Dialysis: No - BPH, Renal insufficiency Hx Neurological Problems: No Hx Cerebrovascular Accident: Yes Hx Seizures: Yes Hx Headaches: Yes Review of Systems All Other Systems: negative except mentioned in HPI Physical Exam Vital Signs Date Time Temp Pulse Resp B/P (MAP) Pulse Ox O2 Delivery O2 Flow Rate FiO2 03/26/17 10:41 Room Air Sp02 EP Interpretation: reviewed, normal General Appearance: normal inspection, well appearing, no apparent distress, alert Head: atraumatic ENT: normal ENT inspection, hearing grossly normal, normal voice Neck: normal inspection, full range of motion, supple, no bony tend Respiratory: normal inspection, lungs clear, normal breath sounds, no respiratory distress, no retraction, no wheezing Cardiovascular #1: regular rate, rhythm, no edema Gastrointestinal: normal inspection, normal bowel sounds, non tender, soft, no guarding, no hernia Genitourinary: no CVA tenderness Musculoskeletal: normal inspection, back normal, normal range of motion Neurologic: normal inspection, alert, responsive, speech normal Psychiatric: normal inspection, judgement/insight normal, mood/affect normal Skin: normal inspection, normal color, no rash Medical Decision Making Diagnostic Impression: Primary Impression: Weakness Additional Impressions: Hyperkalemia Acute kidney injury Dehydration Diabetes ER Course Patient presented for generalized weakness. Differential diagnosis included was not limited to anemia, urinary tract infection, electrolyte abnormality, hypothyroidism, myocardial infarction, myasthenia gravis, dehydration, among others. Because of complexity of patient's case laboratory testing and imaging studies were ordered. Patient noted have evidence of acute right-sided weakness. CT head read by radiology showed atrophic changes without definite evidence of acute CVA. Laboratory testing was notable for elevated BUN/creatinine compared to the patient's baseline. CPK was noted be elevated consistent with possible rhabdomyolysis. Patient started on IV fluids.Dr. Zohaib Stark was contacted for inpatient management due to primary care physician coverage. Labs Test 03/26/17 11:24 White Blood Count 8.6 K/UL (4.8-10.8) Red Blood Count 4.28 M/UL (4.70-6.10) Hemoglobin 12.7 G/DL (14.2-18.0) Hematocrit 38.4 % (42.0-52.0) Mean Corpuscular Volume 90 FL (80-99) Mean Corpuscular Hemoglobin 29.6 PG (27.0-31.0) Mean Corpuscular Hemoglobin Concent 33.0 G/DL (32.0-36.0) Red Cell Distribution Width 12.1 % (11.6-14.8) Platelet Count 227 K/UL (150-450) Mean Platelet Volume 7.7 FL (6.5-10.1) Neutrophils (%) (Auto) 80.9 % (45.0-75.0) Lymphocytes (%) (Auto) 9.4 % (20.0-45.0) Monocytes (%) (Auto) 8.3 % (1.0-10.0) Eosinophils (%) (Auto) 0.6 % (0.0-3.0) Basophils (%) (Auto) 0.7 % (0.0-2.0) Prothrombin Time 10.3 SEC (9.30-11.50) Prothromb Time International Ratio 1.0 (0.9-1.1) Activated Partial Thromboplast Time 25 SEC (23-33) Sodium Level 142 MMOL/L (136-145) Potassium Level 5.0 MMOL/L (3.5-5.1) Chloride Level 105 MMOL/L (98-107) Carbon Dioxide Level 23 MMOL/L (21-32) Blood Urea Nitrogen 40 mg/dL (7-18) Creatinine 1.9 MG/DL (0.55-1.30) Estimat Glomerular Filtration Rate 36.1 mL/min (>60) Glucose Level 196 MG/DL (74-106) Calcium Level 8.3 MG/DL (8.5-10.1) Total Bilirubin 0.4 MG/DL (0.2-1.0) Aspartate Amino Transf (AST/SGOT) 50 U/L (15-37) Alanine Aminotransferase (ALT/SGPT) 30 U/L (12-78) Alkaline Phosphatase 62 U/L (46-116) Total Creatine Kinase 1534 U/L (26-308) Total Protein 7.2 G/DL (6.4-8.2) Albumin 3.3 G/DL (3.4-5.0) Globulin 3.9 g/dL Albumin/Globulin Ratio 0.8 (1.0-2.7) Triglycerides Level 131 MG/DL (30-150) Cholesterol Level 113 MG/DL (< 200) LDL Cholesterol 55 mg/dL (<100) HDL Cholesterol 29 MG/DL (40-60) Cholesterol/HDL Ratio 3.9 (3.3-4.4) EKG Diagnostic Results Rate: normal - 86 Rhythm: NSR ST Segments: no acute changes Rhythm Strip Diag. Results EP Interpretation: yes Rhythm: NSR, no PVC's Last Vital Signs Date Time Temp Pulse Resp B/P (MAP) Pulse Ox O2 Delivery O2 Flow Rate FiO2 03/26/17 10:41 Room Air Status: unchanged Disposition: ADMITTED INPATIENT Condition: Reyes Tarango Mar 26, 2017 10:50
[2017-03-26 11:00] VITALS: BP 103/62
--- NOTE | 2017-03-26 11:13 | Diagnostic Imaging Report ---
Indication: Slurred speech, right-sided weakness and confusion Technique: Continuous helical CT scanning of the head was performed without intravenous contrast material. Axial and coronal 5 mm sections were generated. Dose: Total Dose Length Product - DLP [address] Dose Index - CTDIvol(s) 70.38 mGy. Automated exposure control was utilized for dose reduction. Comparison: None Findings: The ventricles are dilated. There is prominence of cortical sulci. Some mild periventricular low density is present. There is no shift of midline structures. No abnormal extra-axial fluid collections are noted. There is no evidence of intracerebral bleeding. No other abnormal high or low density areas are noted within the brain. Impression: Atrophy. Though the ventricular dilatation may be related to atrophy, the possibility of normal pressure hydrocephalus cannot be excluded. Chronic small vessel white matter ischemic change. The CT scanner at [facility] [place] is accredited by the [employer] and the scans are performed using protocols designed to limit radiation exposure to as low as reasonably achievable to attain images of sufficient resolution adequate for diagnostic evaluation.
[2017-03-26 11:39] LABS: BASOPHILS % (AUTO) 0.7 % (0.0-2.0); EOSINOPHILS % (AUTO) 0.6 % (0.0-3.0); HEMATOCRIT 38.4 % (42.0-52.0); HEMOGLOBIN 12.7 G/DL (14.2-18.0); LYMPHOCYTES % (AUTO) 9.4 % (20.0-45.0); MEAN CORPUSCULAR VOLUME 90 FL (80-99); MONOCYTES % (AUTO) 8.3 % (1.0-10.0); NEUTROPHILS % (AUTO) 80.9 % (45.0-75.0); PLATELET COUNT 227 K/UL (150-450); RED BLOOD COUNT 4.28 M/UL (4.70-6.10); RED CELL DISTRIBUTION WIDTH 12.1 % (11.6-14.8); WHITE BLOOD COUNT 8.6 K/UL (4.8-10.8)
[2017-03-26 11:51] LABS: ALANINE AMINOTRANSFERASE 30 U/L (12-78); ALBUMIN 3.3 G/DL (3.4-5.0); ALBUMIN/GLOBULIN RATIO 0.8 (1.0-2.7); ALKALINE PHOSPHATASE 62 U/L (46-116); ASPARTATE AMINO TRANSFERASE 50 U/L (15-37); BILIRUBIN,TOTAL 0.4 MG/DL (0.2-1.0); BLOOD UREA NITROGEN 40 mg/dL (7-18); CALCIUM 8.3 MG/DL (8.5-10.1); CHLORIDE 105 MMOL/L (98-107); CHOLESTEROL 113 MG/DL (< 200); CREATININE 1.9 MG/DL (0.55-1.30); HDL CHOLESTEROL 29 MG/DL (40-60); SODIUM 142 MMOL/L (136-145); TRIGLYCERIDES 131 MG/DL (30-150)
[2017-03-26 12:00] VITALS: BP 100/68
[2017-03-26] MEDS ORDERED: Sodium Chloride 500ML 500 ML IV ONE (12:00)
[2017-03-26] MEDS ORDERED: Tubing IV Cassette IV ONE (12:03)
[2017-03-26 12:37] LABS: CARBON DIOXIDE 23 MMOL/L (21-32)
[2017-03-26 14:00] VITALS: BP 129/69
[2017-03-26 14:40] LABS: CREATINE KINASE 1534 U/L (26-308)
[2017-03-26 16:00] VITALS: BP 121/84
[2017-03-26 18:00] VITALS: BP 130/64
[2017-03-26] MEDS: NovoLOG Insulin Flexpen SUBQ SCH (21:00)
[2017-03-26 21:18] VITALS: BP 136/70
[2017-03-27] VITALS (7 sets, daily range): BP systolic 147–177; BP diastolic 73–91
--- NOTE | 2017-03-27 03:30 | History and Physical Report ---
DATE OF ADMISSION: 03/26/2017 REASON FOR ADMISSION: Altered mentation and rhabdomyolysis. HISTORY OF PRESENT ILLNESS: This 61-year-old male has a history of cerebrovascular disease and is on multiple psychiatric medications as well. He was brought into the emergency room for evaluation of generalized weakness and increasing confusion, weak, and lethargy. The patient is generally wheelchair bound and has been reportedly having some slurring of his speech. No hypoglycemic episodes were noted despite as he has a history of diabetes. No recent signs of infection including cough, sputum production, vomiting or diarrhea. PAST MEDICAL HISTORY: 1. Coronary artery disease. 2. Hypertension. 3. Type 2 diabetes mellitus. 4. Prostatic hypertrophy. 5. Chronic kidney disease. 6. Diabetic neuropathy. 7. Cerebrovascular disease. 8. History of cerebrovascular accident. 9. Seizure disorder. ALLERGIES: None. MEDICATIONS: Prior to admission, reviewed and reconciled. SOCIAL HISTORY: Negative for smoking, alcohol, or substance abuse. FAMILY HISTORY: Noncontributory. REVIEW OF SYSTEMS: A 10-point review of systems performed, all systems negative other than noted above. PHYSICAL EXAMINATION: VITAL SIGNS: Blood pressure 121/84, pulse 88, respirations 18, afebrile, and 97% saturation on 2 liters nasal cannula. HEENT: Conjunctivae are pink. Mucous membranes dry. NECK: Supple. Jugular venous pressure normal. LUNGS: Clear. CARDIAC: Regular rate. Normal S1, S2 with a fourth heart sound. No murmur. ABDOMEN: Soft, nontender. EXTREMITIES: No edema. NEUROLOGIC: Reveals fluent speech, although somewhat slow. No motor deficits. LABORATORY DATA: White count 8.6, hemoglobin 12.7. Sodium is 142, potassium 5, bicarbonate 23, BUN 40, and creatinine 1.9. CK is 1534. Albumin 3.3. IMPRESSION: 1. Metabolic and toxic encephalopathy. 2. Rhabdomyolysis. 3. Type 2 diabetes mellitus with neuropathy. 4. Cerebrovascular disease. 5. History of dementia with agitation on psychotropic drugs. 6. Acute on chronic renal failure. PLAN: 1. Intravenous fluid hydration. 2. Neuro checks. 3. Insulin coverage by sliding scale. 4. Hold psychiatric drugs. 5. Physical and occupational therapy assessments. Zohaib Stark M.D. DR: ANNY JOB#: [id number] CC:
[2017-03-27] MEDS ORDERED: NovoLOG Insulin Flexpen SUBQ SCH (06:30)
[2017-03-27] MEDS: NovoLOG Insulin Flexpen SUBQ SCH ×4 (07:40→21:03)
[2017-03-27 07:44] LABS: APPEARANCE,URINE CLEAR; BILIRUBIN, URINE NEGATIVE (NEGATIVE); COLOR,URINE PALE YELLOW; GLUCOSE, URINE (UA) NEGATIVE (NEGATIVE); KETONES,URINE NEGATIVE (NEGATIVE); LEUKOCYTE ESTERASE ,URINE NEGATIVE (NEGATIVE); NITRITE,URINE NEGATIVE (NEGATIVE); PH,URINE 6 (4.5-8.0); PROTEIN,URINE NEGATIVE (NEGATIVE); UROBILINOGEN,URINE NORMAL MG/DL (0.0-1.0)
[2017-03-27 09:11] LABS: HEMATOCRIT 38.1 % (42.0-52.0); MEAN CORPUSCULAR VOLUME 91 FL (80-99); PLATELET COUNT 265 K/UL (150-450); WHITE BLOOD COUNT 7.7 K/UL (4.8-10.8)
[2017-03-27 09:19] LABS: ANION GAP 9 mmol/L (5-15); BLOOD UREA NITROGEN 28 mg/dL (7-18); CALCIUM 8.7 MG/DL (8.5-10.1); CARBON DIOXIDE 29 MMOL/L (21-32); CHLORIDE 107 MMOL/L (98-107); CREATININE 1.5 MG/DL (0.55-1.30); POTASSIUM 4.6 MMOL/L (3.5-5.1); SODIUM 144 MMOL/L (136-145)
[2017-03-27 09:34] LABS: ALANINE AMINOTRANSFERASE 29 U/L (12-78); ALBUMIN 3.4 G/DL (3.4-5.0); ALBUMIN/GLOBULIN RATIO 0.9 (1.0-2.7); ALKALINE PHOSPHATASE 67 U/L (46-116); ASPARTATE AMINO TRANSFERASE 35 U/L (15-37); BILIRUBIN,TOTAL 0.4 MG/DL (0.2-1.0); CKMB 3.9 NG/ML (0.0-3.6); CREATINE KINASE 1012 U/L (26-308)
[2017-03-27] MEDS: Benazepril 10mg tab ORAL SCH (09:41)
--- NOTE | 2017-03-27 11:41 | Neurology Progress Note ---
Objective Physical Exam Last Vital Signs Date Time Temp Pulse Resp B/P (MAP) Pulse Ox O2 Delivery O2 Flow Rate FiO2 03/27/17 09:41 147/77 03/27/17 09:40 98.4 88 18 95 Room Air 03/26/17 21:18 2.0 Laboratory Tests Test 03/27/17 07:30 03/27/17 08:50 Urine Color Pale yellow Urine Appearance Clear Urine pH 6 (4.5-8.0) Urine Specific [place] 1.010 (1.005-1.035) Urine Protein Negative (NEGATIVE) Urine Glucose (UA) Negative (NEGATIVE) Urine Ketones Negative (NEGATIVE) Urine Occult Blood 1+ (NEGATIVE) H Urine Nitrite Negative (NEGATIVE) Urine Bilirubin Negative (NEGATIVE) Urine Urobilinogen Normal MG/DL (0.0-1.0) Urine Leukocyte Esterase Negative (NEGATIVE) Urine RBC 0-2 /HPF (0 - 0) H Urine WBC 0 /HPF (0 - 0) Urine Squamous Epithelial Cells Occasional /LPF Urine Bacteria Occasional /HPF (NONE) White Blood Count 7.7 K/UL (4.8-10.8) Red Blood Count 4.20 M/UL (4.70-6.10) L Hemoglobin 13.0 G/DL (14.2-18.0) L Hematocrit 38.1 % (42.0-52.0) L Mean Corpuscular Volume 91 FL (80-99) Mean Corpuscular Hemoglobin 30.9 PG (27.0-31.0) Mean Corpuscular Hemoglobin Concent 34.1 G/DL (32.0-36.0) Red Cell Distribution Width 12.0 % (11.6-14.8) Platelet Count 265 K/UL (150-450) Mean Platelet Volume 6.7 FL (6.5-10.1) Neutrophils (%) (Auto) % (45.0-75.0) Lymphocytes (%) (Auto) % (20.0-45.0) Monocytes (%) (Auto) % (1.0-10.0) Eosinophils (%) (Auto) % (0.0-3.0) Basophils (%) (Auto) % (0.0-2.0) Differential Total Cells Counted 100 Neutrophils % (Manual) 80 % (45-75) H Lymphocytes % (Manual) 10 % (20-45) L Monocytes % (Manual) 10 % (1-10) Eosinophils % (Manual) 0 % (0-3) Basophils % (Manual) 0 % (0-2) Band Neutrophils 0 % (0-8) Platelet Estimate Adequate Platelet Morphology Normal Red Blood Cell Morphology Normal Sodium Level 144 MMOL/L (136-145) Potassium Level 4.6 MMOL/L (3.5-5.1) Chloride Level 107 MMOL/L (98-107) Carbon Dioxide Level 29 MMOL/L (21-32) Anion Gap 9 mmol/L (5-15) Blood Urea Nitrogen 28 mg/dL (7-18) H Creatinine 1.5 MG/DL (0.55-1.30) H Estimat Glomerular Filtration Rate 47.4 mL/min (>60) Glucose Level 157 MG/DL (74-106) H Calcium Level 8.7 MG/DL (8.5-10.1) Total Bilirubin 0.4 MG/DL (0.2-1.0) Aspartate Amino Transf (AST/SGOT) 35 U/L (15-37) Alanine Aminotransferase (ALT/SGPT) 29 U/L (12-78) Alkaline Phosphatase 67 U/L (46-116) Total Creatine Kinase 1012 U/L (26-308) H Creatine Kinase MB 3.9 NG/ML (0.0-3.6) H Creatine Kinase MB Relative Index 0.3 Total Protein 7.3 G/DL (6.4-8.2) Albumin 3.4 G/DL (3.4-5.0) Globulin 3.9 g/dL Albumin/Globulin Ratio 0.9 (1.0-2.7) L Thyroid Stimulating Hormone (TSH) 1.704 uiU/mL (0.358-3.740) Impression/Recommendations Problems: (1) moderate ventriculomegaly, r/o NPH (2) Gait abnormality Status: unchanged Recommendations #[id number] KORI SÁNCHEZ Mar 27, 2017 11:41
--- NOTE | 2017-03-27 17:00 | Progress Note ---
DATE: 03/27/2017 INTERNAL MEDICINE PROGRESS NOTE SUBJECTIVE: The patient's gait remains impaired. The case was discussed with the neurologist. He is being evaluated for normal-pressure hydrocephalus although the patient's gait abnormality has been progressive and chronic. OBJECTIVE: VITAL SIGNS: Blood pressure 147/77, pulse 88, respiratory rate 18, afebrile, oxygen saturation 95% on room air. NEUROLOGIC: Gait is unsteady. The patient requires total assist. LUNGS: Clear. CARDIAC: Regular. ABDOMEN: Soft. EXTREMITIES: No edema. LABORATORY DATA: White count 7.7, hemoglobin 13. Potassium 4.6, BUN/creatinine decreased to 28/1.5. CK is decreased to 1012. TSH is normal at 1.7. IMPRESSION: 1. Gait abnormality, chronic and probably due to diabetic neuropathy and current medications, however, need to rule out normal-pressure hydrocephalus and an MRI is pending. We may have to pursue an outpatient MRI with CSF signaling if there is still question after the tests done here. 2. Rhabdomyolysis, possibly exacerbated by statin drug, which is held. 3. Diabetes mellitus, type 2. We will hold metformin until renal function improves. 4. Peripheral neuropathy, on gabapentin. 5. Hypothyroidism, on replacement therapy. 6. Hypovolemia and dehydration. He will remain on IV fluids for now. 7. Psychiatric disorder, bipolar with history of psychosis. We will hold and re-titrate psychiatric medications. Zohaib Stark M.D. DR: Siva JOB#: [id number] CC:
[2017-03-27] MEDS: Heparin 5000 units/ml inj SUBQ SCH (21:02)
--- NOTE | 2017-03-27 23:00 | Consultation ---
DATE OF CONSULTATION: 03/27/2017 NEUROLOGICAL CONSULTATION CONSULTING PHYSICIAN: Shay Luque M.D. REQUESTING PHYSICIAN: Zohaib Stark M.D. HISTORY OF PRESENT ILLNESS: The patient is a 61-year-old man seen in neurological consultation to evaluate new changes in mental status, complaining of generalized weakness, and episodes of confusion. The patient has an extensive medical history. This dates back with small vessel disease, previous strokes, diabetes, diabetic neuropathies, and markedly abnormal gait for the last few years and walker bound. He has history of coronary artery disease and renal insufficiency. Following admission, he had a CT of the brain done. This revealed a ventriculomegaly, prominence of cortical sulci, and mild periventricular low density lesions. Normal pressure hydrocephalus was not excluded on this basis. Lab work revealed mild anemia with hemoglobin 12.7 and hematocrit 38.4. Normal coagulation panel. Urinalysis, unremarkable. Chemistry panel revealed elevated BUN of 40, creatinine 1.9, and blood sugar 196. Normal TSH and unremarkable lipid panel, but elevated CPK of 1534. PAST MEDICAL HISTORY: The patient has history of lumbar diskogenic disease with radiculopathy, diabetes type 2, chronic psychiatric illness, personality disorder, and COPD. MEDICATIONS: The patient's treatment prior to admission is atorvastatin, benztropine, diclofenac, Depakote 500 b.i.d., Cymbalta, gabapentin, Motrin, loperamide, magnesium supplement, meloxicam, metformin, olanzapine 5 mg b.i.d., pantoprazole, and Risperdal 2 mg. ALLERGIES: None reported. SOCIAL HISTORY: Resident of a nursing facility. No alcohol. No drug abuse. Nonsmoker. REVIEW OF SYSTEMS: The patient denies headache or dizziness, but admitted having some memory issues, but no urinary incontinence. He has markedly abnormal gait, requires assistance. No chest pain or palpitations. No respiratory problems. Denies abdominal pain or discomfort except frequent constipations. PHYSICAL EXAMINATION: GENERAL: A well-developed and well-nourished man, in no acute distress, lying comfortably in bed. VITAL SIGNS: His vital signs now are stable. Blood pressure 147/77 and heart rate fluctuating up to 104. HEENT: Normocephalic. There is no evidence of trauma. Eyes, ears, and throat are clear. NECK: Supple. No meningeal signs. MUSCULOSKELETAL: There is no deformities. Peripheral pulses 1+ and symmetric. MENTAL STATUS: He is alert and oriented x2. He is forgetful, but speech is fluent with no evidence of aphasia. Emotionally labile, anxious, at times angry. CRANIAL NERVE II: Pupils 3 mm responding to light and accommodation. Postsurgical changes noted. There is a mild vertical nystagmus on the left lateral gaze. CRANIAL NERVE V: Normal corneal responses. CRANIAL NERVE VII: No facial asymmetry. CRANIAL NERVE VIII: Normal hearing. CRANIAL NERVES IX THROUGH XII: Tongue is in midline. Symmetric palate elevation. MOTOR EXAMINATION: Normal muscle tone. Able to lift arms and legs against gravity. Deep tendon reflexes depressed bilaterally. Plantar responses flexor. SENSORY EXAMINATION: Reduced proprioception in both feet. GAIT: Not tested, but reported unsteady requiring assistance. IMPRESSION: 1. Ventriculomegaly, probably normal pressure hydrocephalus. 2. Progressive gait abnormality, multifactorial. May relate to normal pressure hydrocephalus. 3. Diabetes and diabetic polyneuropathy. 4. Chronic psychiatric disorder. 5. Chronic low back pain. 6. History of coronary artery disease. 7. Chronic renal insufficiency. 8. Benign prostatic hypertrophy. DISCUSSION/PLAN: Neurological assessment is essentially unchanged from a previous done as outpatient approximately a year ago. Still radiological findings are suspicious for normal pressure hydrocephalus and further appropriate study would be to obtain MRI of the brain with CSF flow study. If indeed positive, further evaluation by Neurosurgery with a CSF drain study will be appropriate. At this time, the patient to continue with the current treatment. I would recommend Psychiatry evaluation as well to streamline his psychotic treatment. Check valproic acid level to adjust Depakote appropriately. Thank you for allowing me to see this interesting patient in neurological consultation. Shay Luque M.D. DR: TESS JOB#: [id number] CC:
[2017-03-28] VITALS: BP 145/98
[2017-03-28 04:00] VITALS: BP 142/96
[2017-03-28] MEDS: NovoLOG Insulin Flexpen SUBQ SCH ×4 (06:39→22:56)
[2017-03-28 08:00] VITALS: BP 168/95
[2017-03-28] MEDS: Benazepril 10mg tab ORAL SCH (08:53)
[2017-03-28] MEDS: Heparin 5000 units/ml inj SUBQ SCH ×2 (08:56→22:55)
--- NOTE | 2017-03-28 10:47 | Diagnostic Imaging Report ---
Indication: Altered level of consciousness Technique: The head was imaged in a 1.5 Tiana magnet. Sequences obtained include sagittal and axial T1 FLAIR, axial T2 fast spin echo with fat saturation, axial T2 FLAIR, diffusion and ADC map. Comparison: None Findings: There is moderate prominence of the sulci, ventricles, and basal cisterns consistent with atrophy. Somewhat disproportionate ventriculomegaly is demonstrated. This could be on the basis of more centralized atrophy. The possibility of communicating hydrocephalus is not excluded. Clinical correlation is recommended. If needed a CSF flow study could be done for further evaluation. Moderate, nonspecific T2 hyperintensity noted within white matter. This may be due to chronic small vessel disease. There is no restricted diffusion. Camp-white differentiation is normal. There is no mass effect, midline shift, edema, or hemorrhage. There are no abnormal extra-axial or intra-axial fluid collections. The corpus callosum and sella are unremarkable. The brainstem and cerebellum are unremarkable. Bone marrow signal within the visualized osseous structures appears age appropriate and unremarkable otherwise. Impression: No acute intracranial findings. Moderate atrophy and evidence of chronic small vessel disease involving white matter tracts. Disproportionate ventriculomegaly suggests possibility of normal pressure hydrocephalus.
[2017-03-28 12:00] VITALS: BP 156/80
[2017-03-28 16:00] VITALS: BP 143/76
[2017-03-28 20:00] VITALS: BP 145/88
[2017-03-29] VITALS: BP 131/80
--- NOTE | 2017-03-29 00:45 | Progress Note ---
DATE: 03/28/2017 INTERNAL MEDICINE PROGRESS NOTE SUBJECTIVE: The patient feels better. Mobilization assessments are noted. The patient has a fall risk. No new laboratories. OBJECTIVE: VITAL SIGNS: Blood pressure 156/80, heart rate 73, and respiratory rate 18. NECK: Supple. LUNGS: Clear. CARDIAC: Regular. Normal S1 and S2. ABDOMEN: Soft. EXTREMITIES: No edema. IMAGING STUDIES: MRI reveals diffuse white matter disease cannot exclude normal-pressure hydrocephalus. IMPRESSION: 1. Unsteady gait. 2. Recurring falls. 3. Acute renal failure. 4. Rhabdomyolysis. PLAN: 1. No resumption of statin drug. 2. Recheck laboratory studies. 3. Taper off IV fluids. 4. Consider short stay at intermediate facility for rehabilitation. 5. We will need to arrange outpatient MRI at [facility] for study with diffusion capacity to assess Terry for normal-pressure hydrocephalus. Zohaib Stark M.D. DR: STEVIE JOB#: [id number] CC:
[2017-03-29 04:00] VITALS: BP 152/98
[2017-03-29] MEDS: NovoLOG Insulin Flexpen SUBQ SCH ×4 (07:48→21:00)
[2017-03-29 08:00] VITALS: BP 159/91
[2017-03-29 08:15] LABS: BASOPHILS % (AUTO) 0.7 % (0.0-2.0); EOSINOPHILS % (AUTO) 2.9 % (0.0-3.0); HEMATOCRIT 34.4 % (42.0-52.0); HEMOGLOBIN 11.6 G/DL (14.2-18.0); LYMPHOCYTES % (AUTO) 22.7 % (20.0-45.0); MEAN CORPUSCULAR VOLUME 90 FL (80-99); MONOCYTES % (AUTO) 7.2 % (1.0-10.0); NEUTROPHILS % (AUTO) 66.4 % (45.0-75.0); PLATELET COUNT 278 K/UL (150-450); RED BLOOD COUNT 3.82 M/UL (4.70-6.10); RED CELL DISTRIBUTION WIDTH 12.2 % (11.6-14.8); WHITE BLOOD COUNT 7.4 K/UL (4.8-10.8)
[2017-03-29] MEDS: Benazepril 10mg tab ORAL SCH (08:51)
[2017-03-29] MEDS: Heparin 5000 units/ml inj SUBQ SCH ×2 (08:52→21:00)
[2017-03-29 09:07] LABS: ALANINE AMINOTRANSFERASE 39 U/L (12-78); ALBUMIN 2.8 G/DL (3.4-5.0); ALBUMIN/GLOBULIN RATIO 0.8 (1.0-2.7); ALKALINE PHOSPHATASE 62 U/L (46-116); ANION GAP 10 mmol/L (5-15); ASPARTATE AMINO TRANSFERASE 23 U/L (15-37); BILIRUBIN,TOTAL 0.3 MG/DL (0.2-1.0); BLOOD UREA NITROGEN 22 mg/dL (7-18); CALCIUM 8.3 MG/DL (8.5-10.1); CARBON DIOXIDE 26 MMOL/L (21-32); CHLORIDE 109 MMOL/L (98-107); CREATINE KINASE 346 U/L (26-308); CREATININE 1.1 MG/DL (0.55-1.30); POTASSIUM 4.4 MMOL/L (3.5-5.1); SODIUM 144 MMOL/L (136-145)
[2017-03-29 20:00] VITALS: BP 136/86
[2017-03-30] VITALS: BP 153/90
[2017-03-30] MEDS ORDERED: metFORMIN 500mg tab ORAL SCH (06:30)
[2017-03-30] MEDS ORDERED: Benztropine 1mg tab ORAL SCH (09:00)
[2017-03-30] MEDS ORDERED: DULoxetine 30mg cap ORAL SCH (09:00)
--- NOTE | 2017-03-30 09:02 | Progress Note ---
DATE: 03/29/2017 INTERNAL MEDICINE PROGRESS NOTE SUBJECTIVE: The patient is without distress. No dizziness. Blood pressure parameters still slightly elevated. The patient has not been mobilized. OBJECTIVE: VITAL SIGNS: Blood pressure 136/86, pulse 74, respirations 21, and afebrile. Earlier BP 159/91. NECK: Supple. LUNGS: Clear. CARDIAC: Regular. Normal S1 and S2 with a fourth heart sound. ABDOMEN: Soft. EXTREMITIES: No edema. LABORATORY DATA: White count 7.4 and hemoglobin 11.6. Chemistry panel within normal limits. CK down to 346. Albumin 2.8. IMPRESSION: 1. Possible normal-pressure hydrocephalus. 2. Rhabdomyolysis, resolved. 3. Moderate protein-calorie malnutrition. 4. Prerenal azotemia with acute renal failure, recovered. 5. Diabetes mellitus with peripheral neuropathy. 6. Bipolar disorder. PLAN: 1. Needs rehabilitation. 2. We will transfer to skilled facility for short course of PT and OT. 3. We will need to repeat MRI in another setting where the machine is able to give a CSF flow study as well and this can be arranged as an outpatient. 4. We will discontinue intravenous fluids and encourage continued oral intake, otherwise titrate psychiatric regimen based on clinical parameters. Zohaib Stark M.D. DR: STEVIE JOB#: [id number] CC: HORTENSIA
--- NOTE | 2017-04-03 08:27 | Discharge Summary ---
Discharge Summary Hospital Course Date of Admission Mar 26, 2017 at 13:23 Date of Discharge Mar 30, 2017 at 00:00 Admitting Diagnosis acute kidney injury HPI Reyes Rashid is a 61 year old male who was admitted on Mar 26, 2017 at 13: 23 for Acute Kidney Injury Hospital Course dc summary #[id number] Discharge Condition Upon Discharge: stable Discharge Disposition Patient was discharged to SNF/Subacute Facility(03) Discharge Diagnoses: Discharge Instructions Discharge Instructions Special Instructions I have been assigned to complete a D/C Summary on this account. I was not involved in the patient management Franchesca Gentile NP ([facility]) Apr 03, 2017 08:27
--- NOTE | 2017-04-03 23:45 | Discharge Summary 2 SIG ---
DATE OF ADMISSION: 03/26/2017 DATE OF DISCHARGE: 03/30/2017 REASON FOR ADMISSION: 61-year-old male with history of hypertension, diabetes, BPH, hypothyroidism, cerebrovascular disease, seizure disorder, wheelchair bound secondary to neuropathy, and psychiatric disorder, presented to emergency department for evaluation of generalized weakness and increased confusion. He was weak and lethargic on presentation. The patient reported slurred speech. No hypoglycemic episode. No recent signs of infection. Upon evaluation in the emergency room, the patient was found to be in acute renal failure and rhabdomyolysis. CK - 1534. BUN- 40 and creatinine -11.9. Glucose -196. Potassium -5.0. The patient was admitted with metabolic and toxic encephalopathy, rhabdomyolysis, acute on chronic renal failure, diabetes mellitus type 2 with neuropathy, cerebrovascular disease, and history of dementia with agitation. HOSPITAL COURSE: The patient was admitted. The patient was started on generous IV hydration. The patient underwent CT of the head, which revealed ventriculomegaly and atrophy. No shift of midline structures. No abnormal extra-axial fluid collection. No evidence of intracerebral bleeding. Neurology consult was requested. Per neurologist, the patient has ventriculomegaly and findings of CT of the head were highly suspicious for normal pressure hydrocephalus. Neurologist recommended to obtain MRI of the brain with cerebrospinal fluid flow study. The patient had a progressive gait abnormality with recurrent falls, which were likely multifactorial and also possibly secondary to normal pressure hydrocephalus. The patient was on generous IV hydration. Renal parameters and electrolytes were closely monitored. Metformin was held and blood sugar was managed with sliding scale of insulin. Neurontin was continued. CK and renal parameters were closely followed up. Prior to discharge, BUN down to 22, creatinine down to 1.1, and CK down to 346. TSH was within normal limits. Current dose of levothyroxine was continued. The patient was working with Physical and Occupational Therapists. The patient was weak and needed short-term rehabilitation. IV fluids were discontinued. Transfer was arranged to group home facility for short-term rehabilitation. Rhabdomyolysis was possibly exacerbated by statin. Statin was on hold and to continue to hold statin at the group home facility. Home medications were all resumed. DVT prophylaxis provided. Track Service Person recommendations implemented for nutritional support. The patient to have outpatient MRI of the brain with cerebrospinal fluid flow study to be arranged. Initially, psychiatric medications were on hold and later, they were titrated and optimized. Brain MRI was done and revealed no acute intracranial findings, showed moderate atrophy and evidence of chronic small vessel disease involving white matter tracts. Disproportionate ventriculomegaly suggested possibility of normal pressure hydrocephalus. The patient was stable for discharge to group home facility. The patient will likely benefit from psychiatric evaluation to optimize psychiatric medication regimen. DISCHARGE MEDICATIONS: See medication reconciliation list. DISCHARGE INSTRUCTIONS: Patient was discharged to the group home facility. for short term rehabilitation. Outpatient MRI of the brain with cerebrospinal fluid study to be arranged as outpatient. DISCHARGE DIAGNOSIS: 1.Rhabdomyolysis-resolved 2.Prerenal azotemia with acute renal failure- recovered 3.Dehydration -resolved 4.Ventriculomegaly, probably normal pressure hydrocephalus. 5.Progressive gait abnormality, multifactorial. 6. Diabetes and diabetic polyneuropathy. 7. Metabolic and toxic encephalopathy 8. Bipolar disorder 9. Chronic low back pain. 10. Benign prostatic hypertrophy 11.Hypothyroidism 12. Moderate protein calorie malnutrition Zohaib Stark M.D. I have been assigned to dictate discharge summary on this account and I was not involved in the patient's management. Franchesca Gentile ([facility]) N.PSaul DR: MEENA JOB#: [id number] CC: HORTENSIA
== END 2017-03-30 | DRG 56 ==
LOC: EMR 10:52 → 2W 13:23 → EDBEDREQ 13:39 → 2E 03-27 21:35
DX: G91.2 (Idiopathic) normal pressure hydrocephalus (principal); G92 Toxic encephalopathy; N17.9 Acute kidney failure, unspecified; F03.91 Unspecified dementia, unspecified severity, with behavioral disturbance; E44.0 Moderate protein-calorie malnutrition; M62.82 Rhabdomyolysis; G93.89 Other specified disorders of brain; E11.22 Type 2 diabetes mellitus with diabetic chronic kidney disease; E11.42 Type 2 diabetes mellitus with diabetic polyneuropathy; I12.9 Hypertensive chronic kidney disease with stage 1 through stage 4 chronic kidney disease, or unspecified chronic kidney disease; E87.5 Hyperkalemia; N18.9 Chronic kidney disease, unspecified; E86.0 Dehydration; N40.0 Benign prostatic hyperplasia without lower urinary tract symptoms; I25.10 Atherosclerotic heart disease of native coronary artery without angina pectoris; J44.9 Chronic obstructive pulmonary disease, unspecified; D64.9 Anemia, unspecified; M51.16 Intervertebral disc disorders with radiculopathy, lumbar region; E03.9 Hypothyroidism, unspecified; F31.9 Bipolar disorder, unspecified; Z68.25 Body mass index [BMI] 25.0-25.9, adult; G89.29 Other chronic pain; Z99.3 Dependence on wheelchair; Z79.899 Other long term (current) drug therapy; Z79.84 Long term (current) use of oral hypoglycemic drugs; Z86.73 Personal history of transient ischemic attack (TIA), and cerebral infarction without residual deficits
CPT/HCPCS: 36415; 70450; 70551; 80053; 80061; 81003; 82550; 82553; 82962; 84443; 85007; 85025; 85610; 85730; 87081; 99285; J1815